=== PATIENT | female | born 1990 | race American Indian/Alaskan Native ===

== ENCOUNTER 2017-06-04 22:17 | Emergency (ER) | payer MEDICAID ==
[2017-06-04 22:22] VITALS: BMI 29.9
[2017-06-04 22:26] VITALS: TEMP 97.4
[2017-06-04] MEDS ORDERED: Sodium Chloride 0.9% 1,000 ML IV STA (22:35)
--- NOTE | 2017-06-04 22:41 | ED PDOC ---
Arrival/HPI - General Chief Complaint: Abdominal Pain Time Seen by Provider: 06/04/17 22:29 Historian: Patient - History of Present Illness Narrative History of Present Illness (Text): 06/04/17 22:36 26yo female with Past medical history of anemia who was bib EMS for complaint of abdominal pain with associated nonbloody/billious vomiting since this afternoon. She notes that her symptoms started after eating chicken this afternoon. She denies diarrhea, constipation, hematemesis, melena, fever, chills , chest pain, urinary symptoms, sick contact, any other complaint. Past Medical History - Provider Review Nursing Documentation Reviewed: Yes - Cardiac Hx Cardiac Disorders: No - Pulmonary Hx Respiratory Disorders: No - Neurological Hx Neurological Disorder: No - HEENT Hx HEENT Disorder: No - Renal Hx Renal Disorder: No - Endocrine/Metabolic Hx Endocrine Disorders: No - Hematological/Oncological Hx Anemia: Yes - Integumentary Hx Dermatological Disorder: No - Psychiatric Hx Substance Use: No - Anesthesia Hx Anesthesia: No Family/Social History - Physician Review Nursing Documentation Reviewed: Yes Family/Social History: Unknown Family HX Smoking Status: Never Smoked Hx Alcohol Use: No Hx Substance Use: No Allergies/Home Meds Allergies/Adverse Reactions: Allergies Penicillins Allergy (Verified 06/04/17 22:20) SHORTNESS OF BREATH shellfish derived Allergy (Verified 06/04/17 22:20) SHORTNESS OF BREATH Home Medications: Home Meds Medication Instructions Recorded Confirmed Ferrous Sulfate, Dried [Iron] 160 mg PO DAILY 06/04/17 06/04/17 Review of Systems - Physician Review All systems were reviewed & negative as marked: Yes - Review of Systems Constitutional: Normal Eyes: Normal ENT: Normal Respiratory: Normal Cardiovascular: Normal Gastrointestinal: Abdominal Pain, Nausea, Vomiting. absent: Constipation, Diarrhea, Hematochezia, Hematemesis Genitourinary Female: Normal Musculoskeletal: Normal Skin: Normal Neurological: Normal Endocrine: Normal Hemo/Lymphatic: Normal Psychiatric: Normal Physical Exam Vital Signs Reviewed: Yes Vital Signs Temp Pulse Resp BP Pulse Ox 06/05/17 00:30 98 H 17 137/69 97 06/04/17 22:25 97.4 F L 117 H 16 142/78 99 Temperature: Afebrile Blood Pressure: Normal Pulse: Tachycardic Respiratory Rate: Normal Appearance: Positive for: Well-Appearing, Non-Toxic, Comfortable, Other ( Modbidly obese) Pain Distress: None Mental Status: Positive for: Alert and Oriented X 3 - Systems Exam Head: Present: Atraumatic, Normocephalic Pupils: Present: PERRL Extroacular Muscles: Present: EOMI Conjunctiva: Present: Normal Mouth: Present: Moist Mucous Membranes Neck: Present: Normal Range of Motion Respiratory/Chest: Present: Clear to Auscultation, Good Air Exchange. No: Respiratory Distress, Accessory Muscle Use Cardiovascular: Present: Regular Rate and Rhythm, Normal S1, S2. No: Murmurs Abdomen: Present: Distention (Secondary to body habitus), Normal Bowel Sounds, Other (soft). No: Tenderness, Peritoneal Signs, Rebound, Guarding, McBurney's Point Tender, Rovsing's Sign Present Back: Present: Normal Inspection Upper Extremity: Present: Normal Inspection. No: Cyanosis, Edema Lower Extremity: Present: Normal Inspection. No: Edema Neurological: Present: GCS=15, CN II-XII Intact, Speech Normal Skin: Present: Warm, Dry, Normal Color. No: Rashes Psychiatric: Present: Alert, Oriented x 3, Normal Insight, Normal Concentration Medical Decision Making ED Course and Treatment: 06/05/17 00:38 Pt in Emergency department for stated history. She was hemodynamically stable in Emergency department and her PE was benign. Lab was unremarkable. Result was DW the pt. She was DC home with Zofran and pepcid. Advised to follow BLAND diet for 24hrs and f/u with her PMD. - Lab Interpretations Lab Results: 06/04/17 22:55 06/04/17 22:55 Lab Results 06/04/17 22:55: Sodium 148, Potassium 4.1, Chloride 106, Carbon Dioxide 25, Anion Gap 20, BUN 11, Creatinine 0.5 L, Est GFR ( Amer) > 60, Est GFR ( Non-Af Amer) > 60, Random Glucose 101, Calcium 10.6 H, Total Bilirubin 0.5, AST 50 H, ALT 32, Alkaline Phosphatase 106, Total Protein 9.0 H, Albumin 5.0 H, Globulin 4.0, Albumin/Globulin Ratio 1.2, Lipase 29 06/04/17 22:55: WBC 7.0, RBC 4.79, Hgb 15.2, Hct 43.0, MCV 89.8, MCH 31.7, MCHC 35.3, RDW 13.1, Plt Count 336, MPV 9.0, Gran % 44.7 L, Lymph % (Auto) 44.7 H, [place] % (Auto) 6.5 H, Eos % (Auto) 3.7, Baso % (Auto) 0.4, Gran # 3.10, Lymph # ( Auto) 3.1, [place] # (Auto) 0.5, Eos # (Auto) 0.3, Baso # (Auto) 0.03 06/04/17 22:40: Urine Color Yellow, Urine Appearance Clear, Urine pH 6.0, Ur Specific [place] <= 1.005, Urine Protein Negative, Urine Glucose (UA) Negative, Urine Ketones Negative, Urine Blood Negative, Urine Nitrate Negative, Urine Bilirubin Negative, Urine Urobilinogen 0.2, Ur Leukocyte Esterase Negative, Urine HCG, Qual Negative - Medication Orders Current Medication Orders: Discontinued Medications Famotidine (Pepcid) 20 mg IVP STAT STA Stop: 06/04/17 22:36 Last Admin: 06/04/17 22:52 Dose: 20 mg IVP Administration Document 06/04/17 22:52 RD (Rec: 06/04/17 22:52 RD [id number]) Charges for Administration # of IVP Administrations 1 Sodium Chloride (Sodium Chloride 0.9%) 1,000 mls @ 1,000 mls/hr IV .Q1H STA Stop: 06/04/17 23:34 Last Admin: 06/04/17 22:51 Dose: 1,000 mls/hr eMAR Start Stop Document 06/04/17 22:51 RD (Rec: 06/04/17 22:51 RD [id number]) Intravenous Solution Start Date 06/04/17 Start Time 22:51 End Date 06/04/17 End time 23:51 Total Infusion Time 60 Ondansetron HCl (Zofran Inj) 4 mg IVP STAT STA Stop: 06/04/17 22:36 Last Admin: 06/04/17 22:49 Dose: 4 mg IVP Administration Document 06/04/17 22:49 RD (Rec: 06/04/17 22:51 RD [id number]) Charges for Administration # of IVP Administrations 1 Disposition/Present on Arrival - Present on Arrival Any Indicators Present on Arrival: No History of DVT/PE: No History of Uncontrolled Diabetes: No Urinary Catheter: No History of Decub. Ulcer: No History Surgical Site Infection Following: None - Disposition Have Diagnosis and Disposition been Completed?: Yes Diagnosis: Abdominal pain, Vomiting Disposition: HOME/ ROUTINE Disposition Time: 00:25 Patient Plan: Discharge Patient Problems: Current Active Problems Problem Status Onset Abdominal pain Acute Vomiting Acute Condition: STABLE Discharge Instructions (ExitCare): Acute Abdomen (Belly Pain), Nausea and Vomiting, Adult (DC) Additional Instructions: Follow up with your Doctor Follow BLAND diet for 24hrs Return to Emergency department for any new symptoms Prescriptions: Famotidine [Pepcid] 40 mg PO DAILY #15 tab Ondansetron ODT [Zofran ODT] 4 mg PO Q6 #6 odt Referrals: Steph Diaz MD [Family Provider] - Follow up with primary Forms: [employer] ([place])
[2017-06-04 23:14] LABS: ALB/GLOB RATIO 1.2 (1.1-1.8); CALCIUM 10.6 mg/dL (8.4-10.5); GFR AFRICAN-AMERICAN > 60; GFR NON-AFRICAN AMERICAN > 60; LIPASE 29 U/L (23-300)
[2017-06-04 23:22] LABS: ALT/SGPT 32 U/L (7-56); AST/SGOT 50 U/L (14-36); BLOOD UREA NITROGEN 11 mg/dL (7-21)
[2017-06-04 23:26] LABS: URINE BILIRUBIN NEGATIVE (NEGATIVE); URINE BLOOD NEGATIVE (NEGATIVE); URINE GLUCOSE (UA) NEGATIVE (NEGATIVE); URINE LEUKOCYTE ESTERASE NEGATIVE Leu/uL (NEGATIVE); URINE PROTEIN NEGATIVE mg/dL (<30 mg/dL); URINE UROBILINOGEN 0.2 E.U./dL (<1 E.U./dL)
[2017-06-04 23:28] LABS: BASO # 0.03 K/mm3 (0.0-2.0); BASO % 0.4 % (0.0-3.0); EOS # 0.3 (0.0-0.7); EOS % 3.7 % (1.5-5.0); GRAN # 3.1 (1.4-6.5); GRAN % 44.7 % (50.0-68.0); HEMOGLOBIN 15.2 g/dL (12.0-16.0); LYMPH # 3.1 (1.2-3.4); LYMPH % 44.7 % (22.0-35.0); MEAN CELL VOLUME 89.8 fl (80.0-105.0); MEAN CORPUSCULAR HEMOGLOBIN 31.7 pg (25.0-35.0); MEAN CORPUSCULAR HGB CONC 35.3 g/dl (31.0-37.0); MONO # 0.5 (0.1-0.6); MONO % 6.5 % (1.0-6.0); RBC 4.79 10^6/uL (3.5-6.1); RED CELL DISTRIBUTION WIDTH 13.1 % (11.5-14.5)
[2017-06-04 23:29] LABS: URINE APPEARANCE CLEAR (CLEAR); URINE COLOR YELLOW (YELLOW)
[2017-06-04 23:33] LABS: HCG,QUALITATIVE URINE NEGATIVE (NEGATIVE)
[2017-06-05 00:31] VITALS: BP 137/69; PULSE 98; RESP 17; O2SAT 97
== END 2017-06-05 00:30 | disposition home or self-care (01) ==
LOC: ED 22:17 → MERGE 22:17 → ED 06-05 00:30
DX: R11.10 Vomiting, unspecified (principal); R10.9 Unspecified abdominal pain
CPT/HCPCS: 80053; 81003; 83690; 84703; 85025; 96361; 96374; 96375; 99283; J2405; J7040